=== PATIENT | male | born 1995 | race Caucasian/White ===

== ENCOUNTER 2021-08-27 20:00 | Emergency (ER) | payer BC ==
[~2021-08-27] VITALS: Ht 185.4 cm; Wt 74.8 kg
--- NOTE | ~2021-08-27 | EMS ---
[facility] [address] [place] [address] EMS Patient Care Report Name: JAMIE WATTS Room #: DEP MAGO Ch#: [id number] Admission: 08/27/21 Attend Phys: Discharge: 08/28/21 Date of : [birth year] Report #: [id number] THIS REPORT FOR: //name// Report Transmitted: 08/28/2021 12:49 EMS Care Summary [place], [place]/[facility] Incident [id number] @ 08/27/2021 19:27 Incident Location [id number] [place] [address] [place] [address] Patient JAMIE WATTS Male, 26 Years 1995 Patient Address Patient History IV Drug Use/Abuse, Chief Complaint Overdose Disposition Transported No Lights/[place] Dispatch Reason Overdose/Poisoning/Ingestion Transported To [facility] Narrative M42 arrived on scene to find the patient lying supine in his bathroom with [place] fire giving the patient oxygen. Patient had reported to be just released from senior care and had possible used heroine upon his arrival home. IV was started and the patient was given narcan. Patient had woken up and was upset. On the way to the ambulance the patient punched out a glass window and ripped out his IV. Patient was upset because according to him he might have to go back to senior care. Patient was moved to the cot and secured with seat belts. EN route to the hospital no changes in the patient condition occurred. Madi[facility] arrived on scene of the hospital and patient care was transferred to the [facility] [address] [place] [address] EMS Patient Care Report Name: JAMIE WATTS Room #: DEP MAGO Ch#: [id number] Admission: 08/27/21 Attend Phys: Discharge: 08/28/21 Date of : [birth year] Report #: [id number] Initial Vitals @19:51P: 112,R: 16,BP: 144/127,Pain: 0/10,GCS: 15,SpO2: 97,Revised Trauma: 12, @19:49P: 112,R: 16,BP: 140/72,Pain: 0/10,GCS: 15,Glucose: 136,CO: 1,SpO2: 97,Revised Trauma: 12, Assessments @19:34MENTAL:Unresponsive,SKIN:Cyanotic,Pale,HEENT:Head/Face: No Abnormalities,Eyes: No Abnormalities,Neck/Airway: No Abnormalities,LUNG SOUNDS:General: No Abnormalities,Left Upper: No Abnormalities,Right Upper: No Abnormalities,Left Lower: No Abnormalities,Right Lower: No Abnormalities,ABDOMEN:General: No Abnormalities,Left Upper: No Abnormalities,Right Upper: No Abnormalities,Left Lower: No Abnormalities,Right Lower: No Abnormalities,PELVIS//GI:No Abnormalities,EXTREMITIES:Left Arm: No Abnormalities,Right Arm: No Abnormalities,Left Leg: No Abnormalities,Right Leg: No Abnormalities,PULSE:NEURO:No Abnormalities,@19:45MENTAL:No Abnormalities,SKIN:No Abnormalities,HEENT:Head/Face: No Abnormalities,Eyes: No Abnormalities,Neck/Airway: No Abnormalities,LUNG SOUNDS:General: No Abnormalities,Left Upper: No Abnormalities,Right Upper: No Abnormalities,Left Lower: No Abnormalities,Right Lower: No Abnormalities,ABDOMEN:General: No Abnormalities,Left Upper: No Abnormalities,Right Upper: No Abnormalities,Left Lower: No Abnormalities,Right Lower: No Abnormalities,PELVIS//GI:No Abnormalities,EXTREMITIES:Left Arm: No Abnormalities,Right Arm: No Abnormalities,Left Leg: No Abnormalities,Right Leg: No Abnormalities,PULSE:NEURO:No Abnormalities, Impression Overdose - Unspecified Procedures @19:34 ALS Assessment Response: UnchangedSucceeded @19:36 IV Therapy - Saline Lock 10cc (20 ga) Site: Antecubital-Right Response: UnchangedSucceeded @19:37 Narcan - 0.5 Milligrams (mg) - Intravenous (IV) Response: Improved @PTAOxygen FlowRate: 15 Device: Bag Valve Mask (BVM) Response: ImprovedSucceeded Timeline NURSE CLINICIAN,Oxygen FlowRate: 15 Device: Bag Valve Mask (BVM) Response: ImprovedSucceeded, 19:25,Call Received 19:25,Dispatch Notified 19:27,Dispatched 19:28,En Route 19:33,On Scene 19:34,At Patient [address] [address] EMS Patient Care Report Name: KAYLEIGH WATTSLE Room #: DEP MAGO Ch#: [id number] Admission: 08/27/21 Attend Phys: Discharge: 08/28/21 Date of : [birth year] Report #: [id number] 19:34,ALS Assessment,Response: UnchangedSucceeded, 19:36,IV Therapy - Saline Lock 10cc 20 ga Site: Antecubital-Right,Response: UnchangedSucceeded, 19:37,Narcan - 0.5 Milligrams (mg) - Intravenous (IV),Response: Improved 19:48,Depart Scene 19:49,BP: 140/72 M,PULSE: 112,RR: 16 R,SPO2: 97 Ox,ETCO2: ,B,PAIN: 0,GCS: 15, 19:51,BP: 144/127 M,PULSE: 112,RR: 16 R,SPO2: 97 Ox,ETCO2: ,BG: ,PAIN: 0,GCS: 15, 20:06,At Destination 20:06,Call Closed Disclaimer v1.1 Copyright 2021 [employer] This EMS Care Summary contains data elements from the applicable legal record (which may be displayed differently). It is designed to provide pertinent information for the following purposes: continuity of care, clinical quality, and state data reporting. The complete legal record is available to ED staff and administrators of the receiving hospital in [employer] Patient Tracker. All data is provided "as is."
[2021-08-28 01:15] VITALS: BP 134/82
== END 2021-08-28 01:16 | disposition home or self-care (01) ==
LOC: ER 20:00
DX: T40.1X1A Poisoning by heroin, accidental (unintentional), initial encounter (principal); F17.210 Nicotine dependence, cigarettes, uncomplicated; Y92.89 Other specified places as the place of occurrence of the external cause